=== PATIENT | female | born 1945 | race Caucasian/White ===

== ENCOUNTER → 2016-07-07 | Outpatient (CLI) | payer MEDICARE, OTHER ==
[~2016-07-07] MED LIST: ALPRAZOLAM0.25 MG PO; ASPIRIN81 MG PO; CALCIUM 500 + D1 TAB PO; DOXYCYCLINE HYC50 MG PO; HYDROCHLOROTH12.5 M1 PO; HYDROCODON-ACE1 EAC7 PO; METOPROLOL SUC100 MG PO; MULTI VITAMIN1 EACH PO; ZESTRIL40 MG PO
--- NOTE | ~2016-07-07 | EKG ---
PATIENT: STIVEN PATRICK UNIT #: [id number] Ventricular Rate: 63 BPM Atrial Rate: 63 BPM P-R Interval: 164 ms QRS Duration: 82 ms Q-T Interval: 406 ms QTC Calculation(Bezet): 415 ms P Melville: 57 degrees Calculated R Melville: 60 degrees Calculated T Melville: 53 degrees Diagnosis Line: Normal sinus rhythm Diagnosis Line: Normal ECG Diagnosis Line: No previous ECGs available Diagnosis Line: Confirmed by MUKUL OLIVEIRA MD ([id number]) on Diagnosis Line: 07/08/2016 11:02:53 PM INTERPRETING MD: VIRGIL
[2016-07-07 10:57] LABS: HEMATOCRIT 43.3 % (35.0-45.0); HEMOGLOBIN 14.5 gm/dL (12.0-16.0); MEAN CELL VOLUME 90.2 FL (83-96); MEAN CORPUSCULAR HEMOGLOBIN 30.1 PG (28-34); MEAN CORPUSCULAR HGB CONC 33.4 g/dL (30-36); MEAN PLATELET VOLUME 8.8 FL (6.5-11.5); RED BLOOD COUNT 4.8 X10e (3.90-5.30); RED CELL DISTRIBUTION WIDTH 12.9 % (11.0-15.5); WHITE BLOOD COUNT 7.1 X10e3 (4.0-10.5)
[2016-07-07 11:39] LABS: ALBUMIN SERUM 4.1 g/dL (3.5-5.0); BILIRUBIN,TOTAL 0.4 mg/dL (0.2-2.0); BUN/CREATININE RATIO 27.14; CALCIUM SERUM 9.5 mg/dL (8.4-10.2); CREATININE SERUM 0.7 mg/dL (0.6-1.4); GLOM FILT RATE Estimated 86.6 mL/min (>60); POTASSIUM 4.6 mmol/L (3.5-5.1); PROTEIN TOTAL SERUM 6.7 g/dL (6.0-8.3)
== END | disposition home or self-care (01) ==
LOC: CAMB 09:39
PROVIDERS: Specialist
DX: Z01.818 Encounter for other preprocedural examination (principal)
CPT/HCPCS: 36415; 80053; 85027; 93005

== ENCOUNTER 2016-07-12 05:54 | Observation (INO) | payer MEDICARE, OTHER ==
--- NOTE | ~2016-07-12 | EKG ---
PATIENT: STIVEN PATRICK UNIT #: [id number] Ventricular Rate: 63 BPM Atrial Rate: 63 BPM P-R Interval: 168 ms QRS Duration: 84 ms Q-T Interval: 472 ms QTC Calculation(Bezet): 483 ms P Maskell: 71 degrees Calculated R Maskell: 65 degrees Calculated T Maskell: 61 degrees Diagnosis Line: Normal sinus rhythm Diagnosis Line: Normal ECG Diagnosis Line: When compared with ECG of 07-JUL-2016 10:11, Diagnosis Line: QT has lengthened Diagnosis Line: Confirmed by KALA ANDERSEN MD ([id number]) on Diagnosis Line: 07/12/2016 4:40:01 PM INTERPRETING MD: GANESH MONROY
--- NOTE | ~2016-07-12 | OR ---
Unit #: [id number] #: [id number] Patient: STIVEN PATRICK [id number] [facility] [address] [place], [place] [address] [id number] MR#: [id number] NAME: STIVEN PATRICK ROOM: Date of Procedure: 07/12/2016 Admission Date: 07/12/2016 Surgeon: To Samuel M.D. : 1945 Attending Physician: To Samuel M.D. Primary Care Physician: Gianna Morrison A.P.R.N. OPERATIVE REPORT PREOPERATIVE DIAGNOSES Chronic cholecystitis and cholelithiasis. POSTOPERATIVE DIAGNOSES Chronic cholecystitis and cholelithiasis. PROCEDURES PERFORMED Diagnostic laparoscopy, laparoscopic lysis of adhesions, and laparoscopic cholecystectomy. ANESTHESIA General endotracheal anesthesia. ESTIMATED BLOOD LOSS Less than 20 mL. LOG HANDLER Troy Betancur M.D. INDICATIONS This is a 71-year-old female who is having episodic right upper quadrant pain with nausea. Ultrasound revealed cholelithiasis. Biliary ductal system was normal and her preoperative liver chemistries were normal. The patient has had previous colon resection, so the risk of conversion to an open procedure was increased and patient was aware of that possibility. DESCRIPTION OF PROCEDURE The patient was admitted to [facility], positively identified, and transported to the operating room, and after induction general endotracheal anesthesia, she received antibiotics per SCIP protocol. In the epigastrium, a 1 cm incision was made. I dissected down and opened the anterior rectus sheath, placed stay sutures, then grasped the posterior sheath and peritoneum, sharply incised that and entered the peritoneal cavity. I palpated and there were no adhesions in this area. A Jorge trocar was placed and a pneumoperitoneum was created. Laparoscope was introduced in the peritoneal cavity along the right lateral border of the abdomen. The abdomen was free of adhesions, so 5 mm trocars were placed in the usual position for cholecystectomy. I then passed a 5 mm camera through the midline extending from the falciform ligament all the way to the pelvis. There were multiple adhesions. Laparoscopic lysis of adhesions were performed until we were below the umbilicus and at that point, a 5-mm trocar was placed under direct vision. Unit #: [id number] #: [id number] Patient: STIVEN PATRICK I then placed the camera through the umbilical port and identified the gallbladder, grasped and elevated the gallbladder. Adhesions were stripped away and the infundibulum was retracted laterally. I then dissected out the triangle of Calot clearly identifying the cystic duct, gallbladder, and cystic duct-common duct junction and posteriorly placed cystic artery. A single clip was placed in the cystic duct centered to gallbladder and then 3 clips were placed distally and the cystic duct sharply divided. The cystic artery was doubly clipped proximally and distally and divided. I then dissected the gallbladder and liver bed using cautery dissection and once it was freed up from its hepatic attachments, it was brought out through the Jorge trocar port. I then recreated the pneumoperitoneum. There was good hemostasis and the clips were well positioned. The trocars were removed as was the laparoscope reducing the pneumoperitoneum. The fascia at the Jorge trocar site was closed with 0 Vicryl interrupted sutures. Marcaine 0.5% with epinephrine was infiltrated at each trocar site. The skin was closed with 4-0 Monocryl subcuticular closure and Dermabond skin adhesive. Sponges, instrument and needle counts were correct x3. The patient tolerated the procedure well and was transported to recovery in stable condition. Findings and postoperative instructions were discussed with her family. Dictated by... Stephy Johnson/yemi TD: 07/12/2016 09:25 JOB #: [id number] OPERATIVE REPORT Page 1 of 1 X To Samuel MD X PROCEDURE OPERATIVE NOTE
--- NOTE | ~2016-07-12 | DS ---
Unit #: [id number] #: [id number] Patient: STIVEN MICHAEL [id number] [address] [place], [place] [address] [id number] Bridgett MR#: [id number] NAME: STIVEN MICHAEL. ROOM: 303 Age: 71 Sex: F Admission Date: 07/12/2016 : 1945 Discharge Date: 07/13/2016 Attending Physician: To Samuel M.D. Referring Physician: To Samuel M.D. Primary Care Physician: Gianna Morrison A.P.R.N. DISCHARGE SUMMARY HISTORY AND HOSPITAL COURSE Ms. Michael is a 71-year-old female who came in the morning of July 12 for routine laparoscopic cholecystectomy. Her procedure was uncomplicated and without complication and initially, in the PACU, she was stable. About 2 hours after the end of her operation, Anesthesia called and said that she was experiencing some hypotension. The patient was evaluated and after evaluation, I felt she was dehydrated and probably had the lingering affects of some of the anesthetic medication combined with multiple antihypertensive medications and Xanax usage chronically. Physical exam and labs were unremarkable. She was admitted for overnight observation, and with adequate hydration, her vital signs stabilized. She remained afebrile, awake and alert throughout. This morning, she has no dizziness, lightheadedness and has been ambulating without difficulty. Her abdomen is benign to exam. Her chemistries show a potassium of 3.4 and a magnesium of 1.5, otherwise, her chemistries are normal. Her troponin is less than 0.03, hemoglobin stable at 10.2, and white count is 11.3. Today, she will have her electrolytes repleted this morning. She will be discharged home after that with instruction to undergo diet and activity as tolerated. She may shower and us a laxative as needed. She is to follow-up in the office in 1-2 weeks, prescription for hydrocodone was left for postop pain control. Dictated by... Stephy Johnson TD: 07/13/2016 21:11 JOB #: [id number] DISCHARGE SUMMARY Page 1 of 1 X To Samuel MD DISCHARGE SUMMARY
[~2016-07-12 05:54] MED LIST changes: -HYDROCODON-ACE1 EAC7 PO
[2016-07-12 11:11] LABS: BASOPHIL# 0.1 X10e3 (0-0.3); BASOPHIL% 0.5 % (0-2.5); DIFF IND NO; EOSINOPHIL# 0.2 X10e3 (0-0.7); EOSINOPHIL% 1.5 % (0.0-7.0); HEMATOCRIT 31.8 % (35.0-45.0); HEMOGLOBIN 10.5 gm/dL (12.0-16.0); LYMPHOCYTE# 1.6 X10e3 (1.0-3.5); MEAN CELL VOLUME 90.9 FL (83-96); MEAN CORPUSCULAR HEMOGLOBIN 29.9 PG (28-34); MEAN CORPUSCULAR HGB CONC 32.9 g/dL (30-36); MEAN PLATELET VOLUME 9.1 FL (6.5-11.5); MONOCYTE# 0.8 X10e3 (0-1.0); MONOCYTE% 5.2 % (3.0-12.0); NEUTROPHIL# 12.2 X10e3 (1.5-7.1); NEUTROPHIL% 81.8 % (40-75); PLATELET COUNT 231 X10e3 (140-420); RED CELL DISTRIBUTION WIDTH 12.9 % (11.0-15.5)
[2016-07-12 11:39] LABS: CALCIUM SERUM 7.9 mg/dL (8.4-10.2); CREATININE SERUM 0.8 mg/dL (0.6-1.4); GLOM FILT RATE Estimated 73.7 mL/min (>60); POTASSIUM 4.2 mmol/L (3.5-5.1)
[2016-07-12 12:57] LABS: CK TOTAL 58 IU/L (26-140)
[2016-07-12 19:24] LABS: HEMATOCRIT 33.3 % (35.0-45.0); HEMOGLOBIN 11.1 gm/dL (12.0-16.0); MEAN CELL VOLUME 91.2 FL (83-96); MEAN CORPUSCULAR HEMOGLOBIN 30.3 PG (28-34); MEAN CORPUSCULAR HGB CONC 33.3 g/dL (30-36); MEAN PLATELET VOLUME 9.2 FL (6.5-11.5); RED BLOOD COUNT 3.65 X10e (3.90-5.30); WHITE BLOOD COUNT 13.9 X10e3 (4.0-10.5)
[2016-07-12 20:52] LABS: %MB 3.8 % (0.0-4.0); MB 2.8 ng/ml
[2016-07-13 04:16] LABS: HEMATOCRIT 30.4 % (35.0-45.0); HEMOGLOBIN 10.2 gm/dL (12.0-16.0); MEAN CELL VOLUME 90.7 FL (83-96); MEAN CORPUSCULAR HEMOGLOBIN 30.5 PG (28-34); MEAN CORPUSCULAR HGB CONC 33.6 g/dL (30-36); MEAN PLATELET VOLUME 8.9 FL (6.5-11.5); RED BLOOD COUNT 3.36 X10e (3.90-5.30); RED CELL DISTRIBUTION WIDTH 13.2 % (11.0-15.5); WHITE BLOOD COUNT 11.3 X10e3 (4.0-10.5)
[2016-07-13 04:48] LABS: ALBUMIN SERUM 3.6 g/dL (3.5-5.0); BILIRUBIN,TOTAL 0.7 mg/dL (0.2-2.0); BUN/CREATININE RATIO 17.77; CREATININE SERUM 0.9 mg/dL (0.6-1.4); GLOM FILT RATE Estimated 63.9 mL/min (>60); MAGNESIUM 1.5 mg/dL (1.6-3.0); PHOSPHOROUS 3.1 mg/dL (2.5-4.6); POTASSIUM 3.4 mmol/L (3.5-5.1); PROTEIN TOTAL SERUM 6.1 g/dL (6.0-8.3)
[2016-07-13 05:06] LABS: %MB 3.3 % (0.0-4.0)
[2016-07-13] MEDS ORDERED: HYDROCODON-ACE1 EAC7 PO (07:52)
== END 2016-07-13 10:00 | disposition home or self-care (01) ==
LOC: CSUR 05:54 → C3A PCU 11:35
PROVIDERS: Specialist
DX: K80.10 Calculus of gallbladder with chronic cholecystitis without obstruction (principal); E11.9 Type 2 diabetes mellitus without complications; F41.9 Anxiety disorder, unspecified; I10 Essential (primary) hypertension; J44.9 Chronic obstructive pulmonary disease, unspecified; Z79.82 Long term (current) use of aspirin; Z88.0 Allergy status to penicillin
CPT/HCPCS: 80048; 80053; 82550; 82553; 82947; 83735; 84100; 84484; 85025; 85027; 88304; 93005; 96374; G0378; J0131; J0330; J1644; J2250; J2405; J2710; J3010; J3370; J3475